=== PATIENT | female | born 1985 | race Caucasian/White ===

== ENCOUNTER 2020-05-05 17:42 | Emergency (ER) | payer BC ==
[~2020-05-05] VITALS: Ht 157.5 cm; Wt 53.1 kg
[2020-05-05 17:53] VITALS: BP 11/80
[2020-05-05] MEDS ORDERED: [UNRECOGNIZED DRUG - CODE] IM (18:20)
[2020-05-05] MEDS ORDERED: CEPH-572 PO (18:21)
[2020-05-05] MEDS ORDERED: TETanus/Pertussis (Acell)/Diphther VAC/PF (Tdap-Adult) 0.5ml syringe IMVAC ONE (18:25)
== END 2020-05-05 18:32 | disposition home or self-care (01) ==
LOC: ER 17:43
DX: S61.231A Puncture wound without foreign body of left index finger without damage to nail, initial encounter (principal); Z88.5 Allergy status to narcotic agent; Z88.2 Allergy status to sulfonamides; Z79.2 Long term (current) use of antibiotics; W26.8XXA Contact with other sharp object(s), not elsewhere classified, initial encounter; Y93.89 Activity, other specified; Y92.89 Other specified places as the place of occurrence of the external cause; Y99.8 Other external cause status
CPT/HCPCS: 90471; 90715; 99283